=== PATIENT | male | born 1980 | race African-American/Black ===

== ENCOUNTER 2017-07-22 18:16 | Emergency (ER) | payer OTHER ==
[~2017-07-22] VITALS: Ht 170.2 cm; Wt 80.6 kg
[~2017-07-22 18:16] MED LIST: APAP/CODEINE ELI5 M1 OR; FLEXERIL PO; NOHOMEMEDICATIONS; NORCO 5-325 TA1 EACH PO; ULTRAM 50MG TAB50 MG PO; VICODIN 5-5001 EACH PO; ZPAK PO
[2017-07-22] MEDS ORDERED: IBUPROFEN 800800 MG PO (18:51)
[2017-07-22] MEDS ORDERED: NORCO 5-325 TA1 EACH PO (18:51)
[2017-07-22 19:48] VITALS: BP 102/74
== END 2017-07-22 19:50 | disposition home or self-care (01) ==
LOC: ER 18:16
DX: S16.1XXA Strain of muscle, fascia and tendon at neck level, initial encounter (principal); Y04.8XXA Assault by other bodily force, initial encounter; Y93.89 Activity, other specified; Y92.89 Other specified places as the place of occurrence of the external cause; Y99.8 Other external cause status

== ENCOUNTER 2018-08-15 21:36 | Emergency (ER) | payer OTHER ==
[~2018-08-15] VITALS: Ht 170.2 cm; Wt 78.0 kg
[~2018-08-15 21:36] MED LIST changes: +IBUPROFEN 800800 MG PO
[2018-08-15 23:36] VITALS: BP 116/61
== END 2018-08-15 23:50 | disposition home or self-care (01) ==
LOC: ER 21:36
DX: S01.01XA Laceration without foreign body of scalp, initial encounter (principal); S16.1XXA Strain of muscle, fascia and tendon at neck level, initial encounter; S46.911A Strain of unspecified muscle, fascia and tendon at shoulder and upper arm level, right arm, initial encounter; S60.221A Contusion of right hand, initial encounter; Y04.0XXA Assault by unarmed brawl or fight, initial encounter; Y93.89 Activity, other specified; Y92.89 Other specified places as the place of occurrence of the external cause; Y99.8 Other external cause status

== ENCOUNTER 2018-08-23 07:49 | Emergency (ER) | payer OTHER ==
[~2018-08-23] VITALS: Ht 170.2 cm; Wt 77.1 kg
[2018-08-23 07:50] VITALS: BP 121/56
== END 2018-08-23 08:12 | disposition home or self-care (01) ==
LOC: ER 07:49
DX: S16.1XXA Strain of muscle, fascia and tendon at neck level, initial encounter (principal); Z48.02 Encounter for removal of sutures; X58.XXXA Exposure to other specified factors, initial encounter; Y92.89 Other specified places as the place of occurrence of the external cause; Y93.89 Activity, other specified; Y99.8 Other external cause status

== ENCOUNTER 2018-12-21 14:46 | Emergency (ER) | payer OTHER ==
[~2018-12-21] VITALS: Ht 170.2 cm; Wt 78.5 kg
--- NOTE | ~2018-12-21 | EKG ---
[facility] [place] [address] ELECTROCARDIOGRAM REPORT Name: ELIZA FENTON Ellen [id number] ������������������ Admission: 12/21/18 ������������������ Attend Phys: Discharge: ������������������ Date of : 84 Report #: [id number] ����������������������������������������������������������������� [id number] THIS REPORT FOR: //name// [facility] ED Test Date: 2018-12-21 Test Time: 14:46:45 Pat Name: ELIZA FENTON Department: Room: Gender: Accounting/Finance Tutor: GENEVA : 1980 Requested By: Pretty Macdonald Order Number: [id number] MD: Measurements Intervals [place] Rate: 59 P: 42 DC: 192 QRS: 17 QRSD: 88 T: 16 QT: 383 QTc: 380 Interpretive Statements Sinus rhythm Probable left atrial enlargement RSR' in V1 or V2, right VCD or RVH No previous ECG available for comparison [email or web address] ��������������������������������������������� ���������������������������������������� By: ��������������������������������������������� 1446 1446 Ronald Cardenas MD /EPI
[2018-12-21 15:43] LABS: BASOPHILS 0.7 % (0.0-2.0); EOSINOPHILS 1.3 % (0.0-3.0); HEMOGLOBIN 13.4 gm/dL (14.0-18.0); LYMPHOCYTES 34.2 % (24.0-44.0); MCH 27.3 pg (26.0-34.0); MCHC 32.6 g/dL (28.0-37.0); MCV 83.7 fL (80.0-100.0); MONOCYTES 10.1 % (1.0-8.0); PLATELET COUNT 210 thou/uL (150-400); POLYS 53.7 % (36.0-66.0); RBC 4.89 mil/uL (4.50-6.00); RDW 13.8 % (10.5-14.5); WBC 5.6 thou/uL (4.0-11.0)
[2018-12-21 15:50] LABS: ANION GAP 6 mmol/L (7-16); BUN 26 mg/dL (7-18); CALCIUM 9.1 mg/dL (8.5-10.1); CHLORIDE 105 mmol/L (98-107); CO2 31 mmol/L (21-32); CREATININE 1.7 mg/dL (0.7-1.3); GLUCOSE 82 mg/dL (74-106); POTASSIUM 3.9 mmol/L (3.5-5.1); SODIUM 142 mmol/L (136-145)
[2018-12-21 15:59] LABS: TROPONIN-I <0.06 ng/mL (<0.06)
[2018-12-21] MEDS ORDERED: VENTOLIN HFA 1818 GM INH (17:18)
[2018-12-21] MEDS ORDERED: FLEXERIL PO (17:18)
[2018-12-21 17:38] VITALS: BP 116/67
--- NOTE | 2018-12-22 11:52 | EKG ---
[place] [address] [facility] [place] [address] ELECTROCARDIOGRAM REPORT Name: ELIZA FENTON [facility] [id number] ������������������ Admission: 12/21/18 ������������������ Attend Phys: Discharge: 12/21/18 ������������������ Date of : 84 Report #: [id number] ����������������������������������������������������������������� [id number] THIS REPORT FOR: //name// [facility] ED Test Date: 2018-12-21 Test Time: 14:46:45 Pat Name: ELIZA FENTON Department: Room: Gender: Fitness Studies Teacher: ELOISA : 1980 Requested By: Pretty Macdonald Order Number: [id number] MD: Catarino Felix Measurements Intervals [place] Rate: 59 P: 42 [place]: 192 QRS: 17 QRSD: 88 T: 16 QT: 383 QTc: 380 Interpretive Statements Sinus rhythm RSR' in V1 or V2, right VCD No previous ECG available for comparison Electronically Signed On 12-22-2018 11:52:16 CDT by Catarino Felix [email or web address] ��������������������������������������������� <ELECTRONICALLY SIGNED> ���������������������������������������� By: Catarino Felix MD, [facility] ��������������������������������������������� 12/22/18 1152 1446 1446 Catarino Felix MD, FACC /EPI
--- NOTE | 2018-12-22 11:54 | EKG ---
[place] [address] [facility] [place] [address] ELECTROCARDIOGRAM REPORT Name: ELIZA FENTON [facility] [id number] ������������������ Admission: 12/21/18 ������������������ Attend Phys: Discharge: 12/21/18 ������������������ Date of : 84 Report #: [id number] ����������������������������������������������������������������� [id number] THIS REPORT FOR: //name// [facility] ED Test Date: 2018-12-21 Test Time: 17:33:41 Pat Name: ELIZA FENTON Department: Room: Gender: M Pilot Instructor: VALDO : 1980 Requested By: Pretty Macdonald Order Number: [id number] MD: Catarino Felix Measurements Intervals [place] Rate: 84 P: 66 [place]: 256 QRS: 2 QRSD: 85 T: 18 QT: 346 QTc: 409 Interpretive Statements Sinus rhythm Prolonged [place] interval Probable left atrial enlargement RSR' in V1 or V2, probably normal variant No previous ECG available for comparison Electronically Signed On 12-22-2018 11:53:45 CDT by Catarino Felix [email or web address] ��������������������������������������������� <ELECTRONICALLY SIGNED> ���������������������������������������� By: Catarino Felix MD, [facility] ��������������������������������������������� 12/22/18 1153 1733 173 Catarino Felix MD, FACC /EPI
== END 2018-12-21 17:40 | disposition home or self-care (01) ==
LOC: ER 14:46
PROVIDERS: Emergency Medicine Emergency Medical Services
DX: M62.82 Rhabdomyolysis (principal); R79.89 Other specified abnormal findings of blood chemistry; R07.89 Other chest pain; R42 Dizziness and giddiness; J45.909 Unspecified asthma, uncomplicated